=== PATIENT | female | born 1955 | race Caucasian/White ===

== ENCOUNTER 2017-06-16 20:32 | Emergency (ER) | payer MEDICARE, MEDICAID ==
[2017-06-16 20:38] VITALS: BP 139/80
[2017-06-16 21:07] LABS: Hematocrit 37 % (35-47); Hemoglobin 12.7 g/dl (12.0-16.0); Mean Corpuscular HGB Conc 35 g/dl (31-36); Mean Corpuscular Hemoglobin 33 pg (27-31); Mean Corpuscular Volume 97 fL (80-97); Mean Platelet Volume 6 um3 (7.4-10.4); Red Cell Distribution Width 13 % (10.5-15); White Blood Count 5.9 10^3/ul (3.5-10.8)
[2017-06-16 21:24] LABS: ALT 18 U/L (7-52); AST 24 U/L (13-39); Albumin 4.1 g/dL (3.2-5.2); Alkaline Phosphatase 136 U/L (34-104); Anion Gap 7 mmol/L (2-11); BUN/Creatinine Ratio 35.7 (8-20); Blood Urea Nitrogen 25 mg/dL (6-24); CO2 Carbon Dioxide 25 mmol/L (22-32); Calcium 9.1 mg/dL (8.6-10.3); Chloride 104 mmol/L (101-111); EGFR African American 110.1 (>60); EGFR Non-African American 85.6 (>60); Globulin 3.1 g/dL (2-4); Glucose 108 mg/dL (70-100); Potassium 3.5 mmol/L (3.5-5.0); Sodium 136 mmol/L (133-145); Total Protein 7.2 g/dL (6.4-8.9)
[2017-06-16 21:37] LABS: Urine Bacteria 1+ (Absent); Urine Bilirubin Negative (Negative); Urine Glucose Negative (Negative); Urine Nitrite Negative (Negative)
[2017-06-16 21:38] LABS: Acetaminophen < 15 mcg/mL; Alcohol < 10 mg/dL (<10); Salicylate < 2.50 mg/dL (<30)
[2017-06-16 21:52] LABS: Benzodiazepine Urine Screen None Detected (None Detect)
[2017-06-16 21:53] LABS: TSH (Thyroid Stimulating Horm) 2.37 mcIU/mL (0.34-5.60)
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
== END 2017-06-16 23:04 | disposition home or self-care (01) ==
LOC: ED 20:32
DX: F41.9 Anxiety disorder, unspecified (principal); F32.9 Major depressive disorder, single episode, unspecified; T14.91XA Suicide attempt, initial encounter
CPT/HCPCS: 36415; 80053; 80307; 80320; 80329; 81003; 81015; 84443; 85025; 87086; 99285; G0480

== ENCOUNTER 2019-08-10 16:47 | Emergency (ER) | payer MEDICARE, MEDICAID ==
[2019-08-10 19:07] LABS: ABS Basophils 0.1 10^3/ul (0-0.2); ABS Eosinophils 0.1 10^3/ul (0-0.6); ABS Lymphocytes 1.5 10^3/ul (1.0-4.8); ABS Monocytes 0.5 10^3/ul (0-0.8); ABS Neutrophils 6.3 10^3/ul (1.5-7.7); Hematocrit 37 % (35-47); Hemoglobin 12.9 g/dL (12.0-16.0); Lymphocyte % 17.5 %; Mean Corpuscular HGB Conc 35 g/dL (31-36); Mean Corpuscular Hemoglobin 33 pg (27-31); Mean Corpuscular Volume 96 fL (80-97); Nucleated Red Blood Cells % 0.2; Platelet Count 306 10^3/uL (150-450); Red Blood Count 3.89 10^6 /uL (3.70-4.87); Red Cell Distribution Width 13 % (10-15); White Blood Count 8.4 10^3/uL (3.5-10.8)
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
[2019-08-10 19:38] LABS: Alcohol < 10 mg/dL (<10)
[2019-08-10 19:43] LABS: ALT 24 U/L (7-52); AST 27 U/L (13-39); Albumin/Globulin Ratio 1.3 (1-3); Alkaline Phosphatase 112 U/L (34-104); Anion Gap 7 mmol/L (2-11); BUN/Creatinine Ratio 21.1 (8-20); Blood Urea Nitrogen 12 mg/dL (6-24); CO2 Carbon Dioxide 25 mmol/L (22-32); Calcium 8.8 mg/dL (8.6-10.3); Chloride 107 mmol/L (101-111); EGFR African American 130.5 (>60); EGFR Non-African American 107.8 (>60); Globulin 3.2 g/dL (2-4); Glucose 107 mg/dL (70-100); Sodium 139 mmol/L (135-145); Total Protein 7.2 g/dL (6.4-8.9)
[2019-08-10 19:57] LABS: Urine Appearance Cloudy; Urine Bilirubin Negative (Negative); Urine Blood Negative (Negative); Urine Color Yellow; Urine Glucose Negative (Negative); Urine Ketones Negative (Negative); Urine Nitrite Negative (Negative); Urine Protein Negative (Negative); Urine Specific Gravity 1.013 (1.010-1.030); Urine Urobilinogen Negative (Negative)
[2019-08-10 20:01] LABS: Urine Bacteria Absent (Absent); Urine Red Blood Cell 1+(3-5/hpf) (Absent); Urine Squamous Epithelial Cell Present (Absent); Urine White Blood Cell 1+(6-10/hpf) (Absent)
[2019-08-10 20:46] VITALS: BP 187/105
== END 2019-08-10 20:45 | disposition home or self-care (01) ==
LOC: ED 16:47
DX: R45.1 Restlessness and agitation (principal); E87.6 Hypokalemia; F41.9 Anxiety disorder, unspecified; G40.909 Epilepsy, unspecified, not intractable, without status epilepticus
CPT/HCPCS: 36415; 80053; 80320; 81003; 81015; 83605; 85025; 87086; 99283; G0480

== ENCOUNTER 2021-12-11 11:01 | Inpatient (IN) ==
[2021-12-11] MEDS ORDERED: Albuterol HFA INHALER 8 gm MDI INH ONE (11:30)
[2021-12-11 12:55] LABS: ABS Basophils 0.1 10^3/ul (0-0.2); ABS Eosinophils 0.4 10^3/ul (0-0.6); ABS Monocytes 0.6 10^3/ul (0-0.8); ABS Neutrophils 5.6 10^3/ul (1.5-7.7); Eosinophil % 5.6 %; Hematocrit 33 % (35-47); Hemoglobin 11.3 g/dL (12.0-16.0); Lymphocyte % 13.5 %; Mean Corpuscular HGB Conc 35 g/dL (31-36); Mean Corpuscular Hemoglobin 33 pg (27-31); Mean Corpuscular Volume 96 fL (80-97); Mean Platelet Volume 6.4 fL (7.4-10.4); Platelet Count 336 10^3/uL (150-450); Red Blood Count 3.39 10^6 /uL (3.70-4.87); Red Cell Distribution Width 13 % (10-15); White Blood Count 7.7 10^3/uL (3.5-10.8)
[2021-12-11 13:10] LABS: Albumin 3.6 g/dL (3.2-5.2); Albumin/Globulin Ratio 1.4 (1-3); C Reactive Protein 162.05 mg/L (<8.01); Calcium 8.2 mg/dL (8.6-10.3); Globulin 2.6 g/dL (2-4); Potassium 3.9 mmol/L (3.5-5.0); Total Bilirubin 0.3 mg/dL (0.2-1.0); Total Protein 6.2 g/dL (6.4-8.9); eGFR CKD-EPI 103.4 (>60)
[2021-12-11 13:12] LABS: INR 1.12 (0.86-1.15)
[2021-12-11 13:16] LABS: Influenza A Molecular Negative (Negative); Influenza B Molecular Negative (Negative)
[2021-12-11 14:16] LABS: High Sensitivity Troponin 1 Hr 9 pg/mL (<15)
[2021-12-11] MEDS ORDERED: Iohexol 350 (CONTRAST) 500 ML MDV IV ONE (16:46)
[2021-12-11] MEDS ORDERED: Enoxaparin 100 MG/ML SYR SUBCUT ONE (18:09)
[2021-12-11] MEDS ORDERED: Albuterol HFA INHALER 8 gm MDI INH PRN (23:42)
[2021-12-12] MEDS: NS 0.9% 1000 ml BAG 1,000 ML IV SCH ×2 (00:32→11:16)
[2021-12-12] MEDS: carBAMazepine 100mg CHEWTAB PO SCH ×4 (00:40→21:22)
[2021-12-12] MEDS: Enoxaparin 100 MG/ML SYR SUBCUT SCH ×2 (05:07→17:20)
[2021-12-12 07:47] LABS: ABS Eosinophils 0.5 10^3/ul (0-0.6); ABS Lymphocytes 0.8 10^3/ul (1.0-4.8); ABS Monocytes 0.6 10^3/ul (0-0.8); ABS Neutrophils 4.1 10^3/ul (1.5-7.7); Eosinophil % 8.2 %; Hematocrit 31 % (35-47); Hemoglobin 10.6 g/dL (12.0-16.0); Mean Corpuscular HGB Conc 35 g/dL (31-36); Mean Corpuscular Hemoglobin 34 pg (27-31); Mean Corpuscular Volume 96 fL (80-97); Mean Platelet Volume 6.6 fL (7.4-10.4); Platelet Count 333 10^3/uL (150-450); Red Blood Count 3.16 10^6 /uL (3.70-4.87); Red Cell Distribution Width 13 % (10-15)
[2021-12-12 08:10] LABS: % Iron Saturation 13 % (15-55); ALT 71 U/L (7-52); AST 28 U/L (13-39); Albumin 3.3 g/dL (3.2-5.2); Albumin/Globulin Ratio 1.4 (1-3); Alkaline Phosphatase 145 U/L (35-149); Anion Gap 5 mmol/L (2-11); Blood Urea Nitrogen 11 mg/dL (6-24); C Reactive Protein 145.94 mg/L (<8.01); CO2 Carbon Dioxide 29 mmol/L (22-32); Calcium 8.4 mg/dL (8.6-10.3); Chloride 105 mmol/L (101-111); GGTP 257 U/L (9-64.0); Globulin 2.4 g/dL (2-4); Glucose 92 mg/dL (70-100); Iron 34 ug/dL (50-212); Potassium 3.9 mmol/L (3.5-5.0); Sodium 139 mmol/L (135-145); Total Iron Binding Capacity 265 mcg/dL (250-450); Total Protein 5.7 g/dL (6.4-8.9); Transferrin 189 mg/dL (203-362); Unsaturated Iron Binding 231 ug/dL; eGFR CKD-EPI 103.9 (>60)
[2021-12-12 08:23] LABS: Ferritin 97.8 ng/mL (11-307)
[2021-12-12 08:26] LABS: Folate > 20.00 ng/mL (5.90-24.80)
[2021-12-12 08:27] LABS: Vitamin B12 390 pg/mL (180-914)
[2021-12-12] MEDS: Calcium Carb (TUMS) 500 mg CHEW TAB PO SCH (09:04)
[2021-12-12] MEDS ORDERED: Azithromycin 500 mg/250 ml NS 500 MG/250 ML BAG IVPB SCH (09:30)
[2021-12-12] MEDS: cefTRIAXone 1 gm/50 mL D5W 1 GM/50 ML BAG IV SCH (09:41)
[2021-12-12] MEDS ORDERED: Furosemide 20 mg/2 ml IV VIAL IV ONE (10:24)
[2021-12-12 12:23] LABS: Urine Appearance Cloudy; Urine Bilirubin Negative (Negative); Urine Blood Negative (Negative); Urine Color Yellow; Urine Glucose Negative (Negative); Urine Ketones Negative (Negative); Urine Nitrite Negative (Negative); Urine Protein Negative (Negative); Urine Specific Gravity 1.016 (1.002-1.030); Urine Urobilinogen Negative (Negative)
[2021-12-12 13:13] LABS: Urine Bacteria 1+ (Absent); Urine Red Blood Cell Absent (Absent); Urine Squamous Epithelial Cell Present (Absent); Urine White Blood Cell 3+(>20/hpf) (Absent)
[2021-12-13] MEDS: Enoxaparin 100 MG/ML SYR SUBCUT SCH ×2 (05:51→17:44)
[2021-12-13 06:08] LABS: ABS Basophils 0.1 10^3/ul (0-0.2); ABS Eosinophils 0.5 10^3/ul (0-0.6); ABS Lymphocytes 0.9 10^3/ul (1.0-4.8); ABS Monocytes 0.5 10^3/ul (0-0.8); ABS Neutrophils 4.9 10^3/ul (1.5-7.7); Eosinophil % 7.5 %; Hematocrit 31 % (35-47); Hemoglobin 10.8 g/dL (12.0-16.0); Lymphocyte % 12.5 %; Mean Corpuscular HGB Conc 35 g/dL (31-36); Mean Corpuscular Hemoglobin 34 pg (27-31); Mean Corpuscular Volume 96 fL (80-97); Mean Platelet Volume 6.5 fL (7.4-10.4); Platelet Count 376 10^3/uL (150-450); Red Blood Count 3.23 10^6 /uL (3.70-4.87); Red Cell Distribution Width 13 % (10-15); White Blood Count 6.9 10^3/uL (3.5-10.8)
[2021-12-13 06:26] LABS: Albumin 3.5 g/dL (3.2-5.2); Albumin/Globulin Ratio 1.4 (1-3); Calcium 8.6 mg/dL (8.6-10.3); Globulin 2.5 g/dL (2-4); Potassium 4.6 mmol/L (3.5-5.0); Total Bilirubin 0.2 mg/dL (0.2-1.0); eGFR CKD-EPI 103.7 (>60)
[2021-12-13] MEDS ORDERED: Furosemide 20 mg/2 ml IV VIAL IV ONE (09:01)
[2021-12-13] MEDS: Calcium Carb (TUMS) 500 mg CHEW TAB PO SCH (09:44)
[2021-12-13] MEDS: cefTRIAXone 1 gm/50 mL D5W 1 GM/50 ML BAG IV SCH (09:52)
[2021-12-13] MEDS: carBAMazepine 100mg CHEWTAB PO SCH ×3 (10:05→20:38)
[2021-12-14] MEDS: Enoxaparin 100 MG/ML SYR SUBCUT SCH (05:08)
[2021-12-14 05:28] LABS: Albumin 3.4 g/dL (3.2-5.2); Albumin/Globulin Ratio 1.3 (1-3); Calcium 8.2 mg/dL (8.6-10.3); Globulin 2.7 g/dL (2-4); Magnesium 1.9 mg/dL (1.9-2.7); Total Bilirubin 0.3 mg/dL (0.2-1.0); Total Protein 6.1 g/dL (6.4-8.9); eGFR CKD-EPI 100.6 (>60)
[2021-12-14] MEDS: Calcium Carb (TUMS) 500 mg CHEW TAB PO SCH (08:31)
[2021-12-14] MEDS: carBAMazepine 100mg CHEWTAB PO SCH ×2 (08:31→14:24)
[2021-12-14] MEDS: cefTRIAXone 1 gm/50 mL D5W 1 GM/50 ML BAG IV SCH (08:50)
[2021-12-14 11:27] VITALS: BP 135/58
== END 2021-12-14 16:25 | disposition home or self-care (01) | DRG 175 ==
LOC: EDHOLD 11:01 → ED 11:01 → SUATTDRO 20:59 → MED 23:44
PROVIDERS: ADMIT Hospitalist; ATTEND Internal Medicine